=== PATIENT | male | born 1990 | race Caucasian/White ===

== ENCOUNTER → 2021-04-22 09:26 | Outpatient (CLI) | payer BC, SELFPAY ==
[2021-04-22 21:12] LABS: SARS-CoV-2 RNA PCR Negative
== END ==
PROVIDERS: PCP Family Medicine; Visit Provider Physician Assistant Medical
DX: R05.9 Cough, unspecified (principal); Z20.822 Contact with and (suspected) exposure to COVID-19
CPT/HCPCS: C9803; U0003; U0005

== ENCOUNTER 2021-06-02 07:23 | Outpatient (CLI) | payer BC, SELFPAY ==
[2021-06-02 07:54] LABS: Basophils Percent Auto 0.5 % (0.2-1.2); Eosinophils Absolute Auto 0.1 K/mm3 (0-0.3); Eosinophils Percent Auto 2.1 % (0-4.4); Hematocrit 43.4 % (42.0-52.0); Hemoglobin 14.3 g/dL (14.0-18.0); Immature Granulocyte Absolute 0.04 K/mm3 (0.00-0.031); Immature Granulocyte Percent A 0.6 % (0-0.5); Lymphocytes Absolute Auto 1.73 K/mm3 (0.9-3.2); Lymphocytes Percent Auto 26.4 % (18.3-44.2); Mean Corpuscular HGB Conc 32.9 g/dl (32-36); Mean Corpuscular Volume 84.9 fl (80-100); Mean Platelet Volume 9.8 fl (7.4-10.4); Monocytes Absolute Auto 0.8 K/mm3 (0.1-0.6); Monocytes Percent Auto 11.6 % (2.6-8.5); Neutrophils Absolute Auto 3.9 K/mm3 (1.3-6.7); Neutrophils Percent Auto 58.8 % (45.5-73.1); Platelet Count Result 308 k/mm3 (150-375); Red Blood Count 5.11 M/mm3 (4.6-6.20); Red Cell Distribution Width 13.7 % (11.5-14.5); White Blood Count 6.6 K/mm3 (4.5-10.0)
[2021-06-02 08:08] LABS: Alanine Aminotransferase 49 U/L (4-50); Albumin Level 4.4 g/dL (3.5-5.1); Alkaline Phosphatase 65 U/L (38-126); Amylase 75 U/L (30-110); Anion Gap 7 mmol/L (8-16); Aspartate Amino Transferase 39 U/L (17-59); Bilirubin,Total 0.5 mg/dL (0.2-1.3); Blood Urea Nitrogen 15 mg/dL (9-20); Carbon Dioxide 28 mmol/L (22-30); Chloride 105 mmol/L (98-107); Estimated Glomerular Filt Rate > 60; Glucose 81 mg/dL (65-110); Lipase 52 U/L (23-300); Sodium 140 mmol/L (137-145)
[2021-06-04 19:05] LABS: CMV IgG Antibody <0.60 U/mL (<0.60); CMV IgM Antibody <30.00 AU/mL (<30.00)
[2021-06-05 15:18] LABS: EBV Nuclear Ab Antibody >600.00 U/mL (<18.00); EBV Nuclear Ab Interpretation Past; EBV Virus Capsid Ag IgM Ab <36.00 U/mL (<36.00)
== END 2021-06-02 07:24 | disposition home or self-care (01) ==
LOC: ANHLAB 07:24
PROVIDERS: PCP Family Medicine; Visit Provider Nurse Practitioner Family
DX: R10.9 Unspecified abdominal pain (principal); R53.81 Other malaise
CPT/HCPCS: 36415; 80053; 82150; 83690; 84443; 85025; 86644; 86645; 86664; 86665

== ENCOUNTER → 2021-06-08 09:18 | Outpatient (CLI) | payer BC, SELFPAY ==
--- NOTE | ~2021-06-08 | US_ITS ---
EXAMINATION: US abdomen complete EXAM DATE: 06/08/2021 09:46 INDICATION: R10.9 - Unspecified abdominal pain . TECHNIQUE: Multiple grayscale and Doppler images of the complete abdomen were obtained (by a technolo gist who performed the scan) and subsequently reviewed. There is no prior study for comparison. FINDINGS: The abdominal aorta is normal in caliber. Visualized portion IVC is patent. The pancreatic head a nd body are normal in appearance. The pancreatic tail is not visualized. The liver has normal echogenicity and contour. There are no focal liver lesions identified. There is no evidence of intrahepatic biliary duct dilation. Portal venous flow was seen in the hepatopedal , normal direction and has normal Doppler waveform. Common bile duct measures 3 mm, which is normal. The gallbladder wall is normal in thickness, with ex pected amount of distention. No sonographic evidence of pericholecystic fluid. There is no cholelit hiases. Technologist performing exam reports patient did not demonstrate sonographic High's sign. Please note that this sign is less reliable in patients who have received pain medication. Right kidney: There is normal contour and echogenicity. It measures 10.6 x 4.7 x 5.8 centimeters. There are no focal renal lesions identified. There is no hydronephrosis. Left kidney: There is normal contour and echogenicity. It measures 11.5 x 5.8 x 5.8 centimeters. T here are no focal renal lesions identified. There is no hydronephrosis. The spleen measures 11.8 centimeters and is morphologically normal. IMPRESSION: 1. Unremarkable complete abdominal ultrasound exam. Reviewed, dictated and finalized at location A. HER RENOVATOR
== END ==
PROVIDERS: PCP Family Medicine; Visit Provider Nurse Practitioner Family
DX: R10.9 Unspecified abdominal pain (principal)
CPT/HCPCS: 76700

== ENCOUNTER 2021-07-13 08:41 | Outpatient (CLI) | payer BC, SELFPAY ==
[2021-07-13 09:11] LABS: Basophils Percent Auto 0.7 % (0.2-1.2); Eosinophils Absolute Auto 0.1 K/mm3 (0-0.3); Eosinophils Percent Auto 2.1 % (0-4.4); Hematocrit 41.4 % (42.0-52.0); Hemoglobin 13.3 g/dL (14.0-18.0); Immature Granulocyte Absolute 0.03 K/mm3 (0.00-0.031); Immature Granulocyte Percent A 0.5 % (0-0.5); Lymphocytes Absolute Auto 1.85 K/mm3 (0.9-3.2); Lymphocytes Percent Auto 30.3 % (18.3-44.2); Mean Corpuscular HGB Conc 32.1 g/dl (32-36); Mean Corpuscular Hemoglobin 28.2 pg (26-34); Mean Corpuscular Volume 87.7 fl (80-100); Mean Platelet Volume 9.7 fl (7.4-10.4); Monocytes Absolute Auto 0.6 K/mm3 (0.1-0.6); Monocytes Percent Auto 9.8 % (2.6-8.5); Neutrophils Absolute Auto 3.5 K/mm3 (1.3-6.7); Neutrophils Percent Auto 56.6 % (45.5-73.1); Platelet Count Result 279 k/mm3 (150-375); Red Blood Count 4.72 M/mm3 (4.6-6.20); Red Cell Distribution Width 13.7 % (11.5-14.5); White Blood Count 6.1 K/mm3 (4.5-10.0)
[2021-07-13 10:17] LABS: Vitamin D 25 Hydroxy 48.9 ng/mL
[2021-07-16 18:18] LABS: ANA Cascade Screen Negative (Negative)
== END 2021-07-13 08:42 | disposition home or self-care (01) ==
PROVIDERS: PCP Family Medicine; Visit Provider Physician Assistant Medical
DX: E55.9 Vitamin D deficiency, unspecified (principal); R50.9 Fever, unspecified; B27.90 Infectious mononucleosis, unspecified without complication
CPT/HCPCS: 36415; 82306; 82607; 85025; 86038

== ENCOUNTER → 2021-10-22 01:45 | Outpatient (CLI) | payer BC, SELFPAY ==
[2021-10-22 14:42] LABS: SARS-CoV-2 RNA PCR Negative
== END ==
PROVIDERS: PCP Nurse Practitioner Family; Visit Provider Nurse Practitioner Family
DX: R68.89 Other general symptoms and signs (principal); Z20.822 Contact with and (suspected) exposure to COVID-19
CPT/HCPCS: C9803; U0003; U0005

== ENCOUNTER 2022-03-05 13:03 | Outpatient (CLI) | payer BC, SELFPAY ==
[2022-03-05 14:14] LABS: Hematocrit 42.7 % (42.0-52.0); Hemoglobin 14.5 g/dL (14.0-18.0); Mean Corpuscular Hemoglobin 29.4 pg (26-34); Mean Corpuscular Volume 86.4 fl (80-100); Mean Platelet Volume 10.2 fl (7.4-10.4); Platelet Count Result 244 k/mm3 (150-375); Red Blood Count 4.94 M/mm3 (4.6-6.20); Red Cell Distribution Width 13.3 % (11.5-14.5); White Blood Count 6.4 K/mm3 (4.5-10.0)
== END 2022-03-05 13:04 | disposition home or self-care (01) ==
LOC: ANHLAB 13:05
PROVIDERS: PCP Family Medicine; Visit Provider Physician Assistant Medical
DX: D64.9 Anemia, unspecified (principal)
CPT/HCPCS: 36415; 85027

== ENCOUNTER → 2022-08-11 08:12 | Outpatient (CLI) | payer BC, SELFPAY ==
--- NOTE | ~2022-08-11 | MR_ITS ---
EXAMINATION: MR ankle LT wo con DATE: 08/11/2022 09:19 INDICATION: Twisting left ankle injury with pain and swelling TECHNIQUE: Magnetic resonance imaging (MRI) of the left ankle was performed without intravenous contr ast. Sequences included sagittal, coronal, and axial proton-density weighted fast spin echo without a nd with fat saturation. COMPARISON: None. FINDINGS: Medial ankle ligaments: Prominent thickening and increased signal along with some discontinuous and lax appearing ligament fi bers involving both the deep and anterior portion of the superficial deltoid ligament consistent with high-grade partial tear. The spring ligament complex is normal. Lateral ankle ligaments: The anterior and posterior inferior tibiofibular ligaments are normal. Additional partial tear of the anterior talofibular ligament. The calcaneofibular and posterior talofibular ligaments are normal. Tendons: Achilles tendon is normal. There are some magic angle artifact along the normal peroneus longus longu s and brevis tendons. The tibialis anterior and extensor hallucis longus and extensor digitorum longu s tendons are normal. The tibialis posterior, flexor digitorum longus and flexor hallucis longus tend ons are normal. Plantar fascia: Plantar aponeurosis is normal. Bones/other: Bone alignment is normal. Mild reactive marrow edema at the lateral malleolus centered along the inse rtion of the anterior talofibular . Marrow signal is otherwise normal. No fracture or pathologic jeevan ow replacing process. 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 Fluid: Small ankle joint effusion. There is mild likely reactive soft tissue edema at the medial aspect of t he ankle. IMPRESSION: 1. High-grade partial tears of the deep and superficial deltoid ligament. 2. Partial tear of the anterior talofibular ligament. Reviewed, dictated and finalized at location A.
== END ==
PROVIDERS: PCP Nurse Practitioner Family; Visit Provider Nurse Practitioner Family
DX: S93.422A Sprain of deltoid ligament of left ankle, initial encounter (principal); S93.492A Sprain of other ligament of left ankle, initial encounter; T14.90XD Injury, unspecified, subsequent encounter
CPT/HCPCS: 73721

== ENCOUNTER 2023-08-31 07:01 | Outpatient (CLI) | payer BC, SELFPAY ==
--- NOTE | ~2023-08-31 | MR_ITS ---
MRI of the lumbar spine Clinical History: Back pain, left sciatica Technique: Axial T2-weighted images, and sagittal T1-weighted, T2-weighted, and and T2 fat-sat images were acquired. Findings: There is no fracture or subluxation of the lumbar spine. Vertebral bodies maintain normal h eight and alignment. No bone marrow signal reality evident. At L1-L2, L2-L3, L3-L4, there is no significant disc bulge or herniation. There are moderate facet lavonne int degenerative changes at these levels. No spinal canal stenosis. There is moderate bilateral neura l foraminal narrowing at L2-L3. There is minimal bilateral neural foraminal narrowing at L3-L4. Neura l foramina are preserved at L1-L2. At L4-L5, there is central disc protrusion and probable tiny annular fissure. There is moderate facet arthropathy. No central canal stenosis. There is mild to moderate right neural foraminal narrowing. Left neural foramen preserved. At L5-S1, there is minimal disc bulge with mild to moderate facet arthropathy. No central canal steno sis. There is moderate bilateral neural foraminal narrowing. Paravertebral soft tissues are unremarkable. Impression: [id number] degenerative spondylosis, as above. Reviewed, dictated and finalized at location . Impression: [id number] degenerative spondylosis, as above.
== END 2023-08-31 07:02 ==
LOC: MICIMG 07:02
PROVIDERS: PCP Nurse Practitioner Family; Visit Provider Nurse Practitioner Family
DX: M43.9 Deforming dorsopathy, unspecified (principal); M54.42 Lumbago with sciatica, left side; M51.36 Other intervertebral disc degeneration, lumbar region; M41.85 Other forms of scoliosis, thoracolumbar region; R20.0 Anesthesia of skin; M43.06 Spondylolysis, lumbar region
CPT/HCPCS: 72148